=== PATIENT | male | born 1990 | race Caucasian/White ===

== ENCOUNTER 2016-10-07 01:04 | Emergency (ER) | payer SELFPAY ==
[2016-10-07 01:27] VITALS: BMI 23.1
[2016-10-07 01:46] LABS: RBC/URINE TNTC (0-2); WBC/URINE TNTC (0-2)
[2016-10-07 01:47] LABS: LEUKOCYTES/URINE 2+ (NEGATIVE); NITRITE/URINE NEG (NEGATIVE); URINE OCCULT BLOOD 2+ (NEG/TRACE)
[2016-10-07] MEDS ORDERED: KETOROLAC TROMETHAMINE 10 MG TAB PO ONE (03:30)
[2016-10-07] MEDS ORDERED: CIPROFLOXACIN HCL 500 MG TAB PO ONE (03:31)
--- NOTE | 2016-10-07 03:33 | EDPRACDOC ---
- General Information Chief Complaint: Male Urogenital Problems Stated Complaint: SIDE & URINARY PAIN Time Seen by Provider: 10/07/16 03:26 Mode Of Arrival: Car Home Medications: Home Medications No Home Medications 03/29/13 Oxycodone HCl/Acetaminophen [Percocet 5-325 mg Tablet] 1 - 2 tab PO Q4H PRN #10 tab 03/29/13 Penicillin V Potassium 500 mg PO QID #40 tablet 03/29/13 Ciprofloxacin HCl [Cipro] 500 mg PO BID #20 tab 10/07/16 Tramadol HCl/Acetaminophen [Tramadol-Acetaminophn 37.5-325] 1 each PO Q4 #30 tablet 10/07/16 Allergies/Adverse Reactions: Allergies Allergy/AdvReac Type Severity Reaction Status Date / Time No Known Allergies Allergy Verified 10/07/16 01:27 - History of Present Illness HPI: PATIENT PRESENTS C/O DYSURIA AND LEFT FLANK PAIN . NO FEVER. PATIENT APPEARS INTOXICATED Onset: Yesterday Urinary Pain Location: Reports: Suprapubic, Left Flank Symptom Onset: Reports: Gradual Pain Severity: Mild Pain Quality: Reports: Aching Oral Intake: Normal Urinary Output: Normal Associated Signs and Symptoms: Reports: Abdominal Pain, Flank Pain ED Past Medical History - History Reviewed Yes Nurses notes reviewed and agree except as marked Travel Outside of [place] in the Last 3 Months?: No - Patient Medical History Surgical History: Reports: No Significant History - Social Medical History ETOH: None Substance Abuse: None Lives With: Family Lives In: Home EDM Review of Systems - Review of Systems ROS Negative Except as Marked: Yes All systems reviewed and were negative except as marked Genitourinary: Dysuria - Physical Exam Constitutional: Alert (Awake), Other (INTOXICATED) Oriented to: Time, Person, Place Last recorded Vital Signs: Last Vital Signs Temp 98.5 F 10/07/16 01:23 Pulse 99 10/07/16 01:23 Resp 18 10/07/16 01:23 BP 147/80 10/07/16 01:23 Pulse Ox 98 10/07/16 01:23 Oxygen Pulse Oxygen Saturation 98 O2 Device Room Air Oxygen Flow Rate Fraction of Inspired Oxygen ( FIO2) - HEENT Head: Normal ( normocephalic) Eye Exam: Normal (PERRL, EOMI, Sclera white) Oropharynx: Normal (Pharynx:Moist without exudate,Gums-no swelling) Tympanic Membrane: Normal ENT EAC: Normal TMJ: Normal Nose: No Symptoms Reported (septum midline) Neck: Normal (FROM, trachea at midline) - Respiratory/Cardiovascular Respiratory: Normal - CTA (BBS clear to auscultation without adventitious sounds ) Cardiovascular: Normal (RRR without murmur, gallop or rub) - GI Auscultation: Normal (NABS) Palpation: Normal (Soft,No rebound or guarding, non distended) Tenderness: Non tender Escamilla's Sign: Negative - Musculoskeletal Back: Normal (Non-Tender) Extremities: Normal (Normal tone, Pulses 2+ No cyanosis or edema, FROM) - Integumentary Skin: Normal, Warm, Dry Lymphatics: Normal (no adenopathy) - Neurologic Memory Impaired: Normal Motor Function: Normal (Normal tone, Pulses 2+ No cyanosis or edema, FROM) Cranial Nerve: Normal (CN II-X11 intact sensation, strength 5/5) Cerebellar: Normal Mood Description: Normal Perception: Normal - Results Urine Color Yellow 10/07/16 01:28 Urine Clarity Sl hzy 10/07/16 01:28 Urine pH 5.0 (5.0-8.0) 10/07/16 01:28 Ur Specific [place] 1.035 (1.003-1.035) 10/07/16 01:28 Urine Protein Trace (NEG/TRACE) 10/07/16 01:28 Urine Glucose (UA) Neg (NEGATIVE) 10/07/16 01:28 Urine Ketones Neg (NEGATIVE) 10/07/16 01:28 Urine Occult Blood 2+ (NEG/TRACE) H 10/07/16 01:28 Urine Nitrite Neg (NEGATIVE) 10/07/16 01:28 Urine Bilirubin Neg (NEGATIVE) 10/07/16 01:28 Urine Urobilinogen 0.2 MG/DL (0-1) 10/07/16 01:28 Ur Leukocyte Esterase 2+ (NEGATIVE) H 10/07/16 01:28 Urine RBC Tntc (0-2) H 10/07/16 01:28 Urine WBC Tntc (0-2) H 10/07/16 01:28 Urine Mucus Sm amt (NEG/OCC) 10/07/16 01:28 Lab Results 10/07/16 01:28 Urine Color Yellow Urine Clarity Sl hzy Urine pH 5.0 Ur Specific [place] 1.035 Urine Protein Trace Urine Glucose (UA) Neg Urine Ketones Neg Urine Occult Blood 2+ H Urine Nitrite Neg Urine Bilirubin Neg Urine Urobilinogen 0.2 Ur Leukocyte Esterase 2+ H Urine RBC Tntc H Urine WBC Tntc H Urine Mucus Sm amt Decision Time to Discharge: 03:33 - Departure Yes I personally saw and evaluated the patient. Disposition: Home Condition: Good Final Diagnosis: UTI (urinary tract infection) Qualifiers: Urinary tract infection type: acute cystitis Hematuria presence: without hematuria Qualified Code(s): N30.00 - Acute cystitis without hematuria Instructions: Urinary Tract Infection in Men (ED), Dysuria Education/Counseling Given To: Patient Education/Counseling Given Regarding: Diagnosis, Treatment, Prognosis, Follow Up Referrals: None,No Provider [Primary Care Provider] - One Week Jud Calvert MD [Staff Physician] - One Week Prescriptions: Ciprofloxacin HCl [Cipro] 500 mg PO BID #20 tab Tramadol HCl/Acetaminophen [Tramadol-Acetaminophn 37.5-325] 1 each PO Q4 #30 tablet
[2016-10-07] MEDS ORDERED: CEFTRIAXONE 250 MG VIAL IM ONE (03:34)
[2016-10-07] MEDS ORDERED: AZITHROMYCIN 250 MG TAB PO ONE (03:34)
[2016-10-07] MEDS ORDERED: WATER ONE (03:54)
[2016-10-07 04:16] VITALS: BP 121/71; PULSE 89; TEMP 98.6
== END 2016-10-07 04:15 | disposition home or self-care (01) ==
LOC: ED 01:04
DX: N30.00 Acute cystitis without hematuria (principal)
CPT/HCPCS: 81001; 87086; 99283; J3490; J0696